=== PATIENT | female | born 1960 | race Caucasian/White ===

== ENCOUNTER 2024-04-11 12:01 | Emergency (ER) | payer OTHER ==
[2024-04-11] MEDS: Bupivacaine 0.5% 10 ML SDV INJECT ONE (13:37)
[2024-04-11] MEDS: Triamcinolone Acetonide 40 MG/ML 1 ML SDV INJECT ONE (13:37)
== END 2024-04-11 14:00 | disposition home or self-care (01) ==
LOC: LB.ED 12:01
DX: M25.512 Pain in left shoulder (principal); Z79.899 Other long term (current) drug therapy; Z88.8 Allergy status to other drugs, medicaments and biological substances
CPT/HCPCS: 20552; 99283-25; J0665; J3301